=== PATIENT | male | born 1980 | race Two or more races ===

== ENCOUNTER 2022-11-23 10:35 | Emergency (ER) | payer SELFPAY ==
[~2022-11-23] VITALS: Ht 165.1 cm; Wt 72.4 kg
[2022-11-23 11:25] LABS: Basophils # (auto) 0 10 ^3/uL (0-0.2); Basophils % (auto) 0.4 % (0.0-2.0); Eosinophils # (auto) 0.1 10 ^3/uL (0-0.8); Hemoglobin 12.1 g/dL (13.5-17.5); White Blood Cell 6.1 10^3/uL (4.4-10.8)
[2022-11-23 11:28] LABS: Eosinophils % (auto) 0.9 % (0.0-7.0); Hematocrit 37.5 % (41.0-53.0); Lymphocytes # (auto) 2.4 10 ^3/uL (0.4-5.4); Lymphocytes % (auto) 39.6 % (10.0-50.0); Mean Corpuscular Hemoglobin 22.6 pg (28.0-32.0); Mean Corpuscular Hgb Conc. 32.3 g/dL (32.0-36.0); Mean Corpuscular Volume 69.9 fL (80.0-100.0); Monocytes # (auto) 0.3 10 ^3/uL (0-1.3); Monocytes % (auto) 4.2 % (0.0-12.0); Neutrophils # (auto) 3.4 10 ^3/uL (1.6-8.6); Neutrophils % (auto) 54.9 % (37.0-80.0); Nucleated Red Blood Cells % 0.6 %; Red Blood Cells 5.36 10^6/uL (4.5-5.90); Red Cell Distribution Width 17.1 % (11.8-14.3)
[2022-11-23 11:36] LABS: Alanine Aminotransferase 26 U/L (7-40); Albumin 5.1 g/dL (3.2-4.8); Alkaline Phosphatase 68 U/L (46-116); Anion Gap 8.8 (5-15); Aspartate Aminotransferase 12 U/L (13-40); BUN/Creatinine Ratio 18.3 (10.0-20.0); Bilirubin, Total 1.4 mg/dL (0.2-1.0); Blood Urea Nitrogen 15 mg/dL (9-23); Calcium 9.7 mg/dL (8.5-10.1); Carbon Dioxide 26.2 mmol/L (20-30); Magnesium 2.1 mg/dL (1.6-2.6)
[2022-11-23 11:47] LABS: Chloride 105 mmol/L (98-107); Potassium 3.9 mmol/L (3.5-5.1); Sodium 139 mmol/L (136-145)
[2022-11-23 11:56] LABS: Glucose 136 mg/dL (74-106)
[2022-11-23 12:09] LABS: Partial Thromboplastin Time 26.8 SEC (24.5-34.5); Prothrombin Time 10.5 sec (9.3-11.8)
[2022-11-23 12:30] LABS: Urine WBC None Seen /hpf (0 - 3)
[2022-11-23 12:50] VITALS: BP 138/79; PULSE 75; RESP 18; O2SAT 98
[2022-11-23 12:53] LABS: Urine Bacteria NONE SEEN /hpf (None Seen); Urine Blood Negative /uL (Negative); Urine Clarity Clear (Clear); Urine Color Yellow (Yellow); Urine Protein, UAD Negative (Negative); Urine Specific Gravity 1.023 (1.001-1.035); Urine Urobilinogen Normal (Negative)
[2022-11-23] MEDS ORDERED: PRED20TA2 PO (12:53)
[2022-11-23] MEDS ORDERED: IBUP-1456 PO (12:53)
[2022-11-23] MEDS ORDERED: LEVO500T91 PO (12:53)
[2022-11-23] MEDS ORDERED: ACETAMINOPHEN 325 MG TAB PO ONE (13:00)
[2022-11-23 13:03] LABS: Amphetamine Screen, Urine Neg (NEGATIVE)
[2022-11-23 13:04] LABS: Barbiturate Scree,Urine Neg (NEGATIVE); Benzodiazephine Screen, Urine Neg (NEGATIVE); Cocaine Screen, Urine Neg (NEGATIVE); Opiate Scree,Urine Neg (NEGATIVE); Phencyclidine Screen, Urine Neg (NEGATIVE)
[2022-11-23 13:05] LABS: Cannabinoid Screen, Urine Pos (NEGATIVE)
== END 2022-11-23 13:06 | disposition home or self-care (01) ==
LOC: ER 10:35
DX: J01.00 Acute maxillary sinusitis, unspecified (principal); R10.2 Pelvic and perineal pain; R07.89 Other chest pain; R51.9 Headache, unspecified; F41.9 Anxiety disorder, unspecified; Z79.899 Other long term (current) drug therapy
CPT/HCPCS: 36415; 70450; 71045; 80053; 80307; 81001; 83735; 83880; 84484; 85025; 85610; 85730; 93005